=== PATIENT | male | born 1960 | race Caucasian/White ===

== ENCOUNTER 2017-08-27 07:12 | Day surgery (SDC) | payer BC ==
[~2017-08-27 07:12] MED LIST: Lactated Ringers 1,000 ML IV SCH; Sodium Chloride 0.9% 5 ML Syringe FLUSH PRN
[2017-08-27] MEDS ORDERED: Propofol 200 MG/20 ML SDV ONE ×2 (07:21→09:05)
[2017-08-27] MEDS ORDERED: ceFAZolin 1 GM Vial ONE ×3 (07:21→09:03)
[2017-08-27] MEDS ORDERED: fentaNYL 250 MCG/5 ML SDV ONE (07:21)
[2017-08-27] MEDS ORDERED: Bupivacaine 0.5%/EPINEPHrine 1:200,000 30 ML SDV ONE (08:00)
[2017-08-27] MEDS ORDERED: fentaNYL 250 MCG/5 ML SDV IV ONE (08:30)
[2017-08-27] MEDS ORDERED: ceFAZolin 1 GM Vial IV ONE (08:30)
[2017-08-27] MEDS ORDERED: Glycopyrrolate 0.2 MG/ML 5 ML MDV IV ONE (08:30)
[2017-08-27] MEDS ORDERED: Propofol 200 MG/20 ML SDV IV ONE (08:30)
[2017-08-27] MEDS ORDERED: Bupivacaine 0.5%/EPINEPHrine 1:200,000 30 ML SDV INFILT ONE ×2 (09:04)
[2017-08-27] MEDS ORDERED: Sodium Chloride 0.9% 20 ML SDV ONE (09:04)
--- NOTE | 2017-08-27 09:49 | PCM.OPNOTE ---
- General Post-Op/Procedure Note Date of Surgery/Procedure: 08/27/17 Operative Procedure(s): Umbilical Herniorraphy with overlay mesh. Findings: Moderately enlarged umbilical hernia with contents being loop of small bowel and preperitoneal fat. Repair done with overlay Marlex mesh.. Pre Op Diagnosis: Umbilical hernia, reducible. Post-Op Diagnosis: As above. Anesthesia Technique: General ET Tube Primary Surgeon: Maira Elkins Complications: None Condition: Good Free Text/Narrative:: Preoperative diagnosis: Moderately enlarged umbilical hernia, reducible. Postoperative diagnosis: As above. Contents of the hernia are small loop of small bowel and preperitoneal fat. Procedure performed: Umbilical herniorrhaphy and Marlex mesh overlay repair. Informed consent was obtained from the patient regarding this procedure. All possible complications were thoroughly discussed. These include infection, pain , bleeding, recurrence, bowel obstruction, and other unknown complications. Despite the complications the patient decided to proceed. He was taken to the operating room and kept in the supine position. A satisfactory general anesthetic was administered by the bread slicer machine. His abdomen is thoroughly prepped and draped in the usual fashion. A curvilinear incision was made in the supraumbilical fold and this was dissected to the fascial level. The hernia was readily identified. The fascia was opened. This was mostly preperitoneal fat but there was a small loop of small bowel at this time present. This was carefully dissected away and replaced into the abdominal cavity. The preperitoneal fat was excised and careful hemostasis was obtained. We then repaired the umbilical defect from within the abdomen using 1 nylon. The fascia was then repaired using 1 nylon. An overlay of Marlex mesh was placed and attached to the fascia for additional support. The wound was profusely irrigated. Careful hemostasis was maintained. The subcutaneous tissues were approximated with 4-0 Polysorb and the skin was closed using stainless steel clips. Approximately 10 mL of Marcaine 0.5% was instilled in the wound. Dressings were placed. An abdominal binder was also placed. The patient was transferred to the recovery room in an excellent condition. Blood loss was negligible and there were no intraoperative complications.
== END 2017-08-27 11:40 | disposition home or self-care (01) ==
LOC: KA.SDS 07:12
PROVIDERS: ATTEND Family Medicine
DX: K42.9 Umbilical hernia without obstruction or gangrene (principal); E78.5 Hyperlipidemia, unspecified; Z79.82 Long term (current) use of aspirin; Z79.899 Other long term (current) drug therapy; F17.200 Nicotine dependence, unspecified, uncomplicated
CPT/HCPCS: 49585; C1781; J0690; J2704; J3010; J7120; J3490

== ENCOUNTER 2019-12-31 22:57 | Emergency (ER) | payer BC ==
[2019-12-31] MEDS ORDERED: Metoprolol Tartrate 5 MG/5 ML SDV IVPUSH ONE (23:24)
[2019-12-31] MEDS ORDERED: Sodium Chloride 0.9% 1,000 ML ONE (23:36)
--- NOTE | 2019-12-31 23:36 | EDM.PDOC ---
ED HPI GENERAL MEDICAL PROBLEM - General Chief Complaint: Cardiovascular Problem Stated Complaint: fast heart rate Time Seen by Provider: 12/31/19 23:01 Source of Information: Reports: Patient History Limitations: Reports: No Limitations - History of Present Illness INITIAL COMMENTS - FREE TEXT/NARRATIVE: Patient presents with rapid A Fib that started about 2030 this evening. With it he felt some pain across the top of left shoulder and mild discomfort in upper right chest near sternum. He says this wasn't pain and can't accurately describe it. He has had this set of symptoms more than a dozen times in last 4 years. He always goes to ER and gets back to [facility] usually with medicine and once with cardioversion in [place]. It usually involves staying several hours in hospital. He now takes Xarelto, Flecainide and Metoprolol regularly. - Related Data Allergies Allergy/AdvReac Type Severity Reaction Status Date / Time No Known Drug Allergies Allergy NKDA Verified 12/31/19 23:11 Home Meds: Home Meds Multivitamin with Minerals [Multiple Vitamin] 1 tab PO DAILY 08/24/17 [History] Losartan Potassium 1 tab PO DAILY 06/17/19 [History] Flecainide [Tambocor] 100 mg PO BID 12/31/19 [History] Metoprolol Tartrate 50 mg PO BID 12/31/19 [History] Pravastatin Sodium 20 mg PO DAILY 12/31/19 [History] Rivaroxaban [Xarelto] 20 mg PO DAILY 12/31/19 [History] Past Medical History HEENT History: Reports: Impaired Vision Other HEENT History: readers Cardiovascular History: Reports: Afib, High Cholesterol, Hypertension Gastrointestinal History: Reports: Colon Polyp Musculoskeletal History: Reports: None - Infectious Disease History Infectious Disease History: Reports: Chicken Pox - Past Surgical History HEENT Surgical History: Reports: LASIK, Tonsillectomy Cardiovascular Surgical History: Reports: None GI Surgical History: Reports: Colonoscopy Other Musculoskeletal Surgeries/Procedures:: lower leg history of brake with pins and plate Social & Family History - Caffeine Use Caffeine Use: Reports: Coffee, Energy Drinks ED ROS GENERAL - Review of Systems Review Of Systems: See Below Constitutional: Denies: Fever, Chills, Malaise, Weakness HEENT: Denies: Ear Pain, Throat Pain, Vision Change Respiratory: Reports: Shortness of Breath (mild with the tachycardia). Denies: Cough Cardiovascular: Reports: Chest Pain (see HPI). Denies: Lightheadedness, Syncope GI/Abdominal: Denies: Abdominal Pain, Vomiting Musculoskeletal: Reports: Shoulder Pain (see HPI). Denies: Neck Pain, Arm Pain , Back Pain, Hand Pain Skin: Denies: Cyanosis, Jaundice, Mottled, Pallor, Diaphoresis Neurological: Denies: Confusion, Dizziness, Headache, Seizure, Syncope, Trouble Speaking, Difficulty Walking Psychiatric: Denies: Agitation, Anxiety, Confusion Hematologic/Lymphatic: Reports: Easy Bleeding (on Xarelto) ED EXAM, GENERAL - Physical Exam Exam: See Below Exam Limited By: No Limitations General Appearance: Alert, WD/WN, No Apparent Distress Eye Exam: Bilateral Eye: EOMI, Normal Inspection, PERRL Ears: Normal External Exam, Hearing Grossly Normal Nose: Normal Inspection, No Blood Throat/Mouth: Normal Inspection, Normal Lips, Normal Voice, No Airway Compromise Head: Atraumatic, Normocephalic Neck: Normal Inspection, Supple, Non-Tender, Full Range of Motion Respiratory/Chest: No Respiratory Distress, Lungs Clear, Normal Breath Sounds, No Accessory Muscle Use Cardiovascular: Normal Peripheral Pulses, No Murmur, Tachycardia, Irregularly Irregular Peripheral Pulses: 2+: Carotid (L), Carotid (R), Radial (L), Radial (R), Posterior Tibial (L), Posterior Tibial (R) GI/Abdominal: Soft, Non-Tender, No Organomegaly, No Distention Back Exam: Normal Inspection, Full Range of Motion Extremities: Normal Inspection, Normal Range of Motion, Non-Tender, No Pedal Edema Neurological: Alert, Oriented, Normal Cognition, No Motor/Sensory Deficits Psychiatric: Normal Affect, Normal Mood Skin Exam: Warm, Dry, Intact, Normal Color, No Rash Course - Vital Signs Last Recorded V/S: Last Vital Signs Temp 96.8 F L 12/31/19 22:57 Pulse 130 H 01/01/20 00:25 Resp 16 01/01/20 00:25 BP 124/68 01/01/20 00:25 Pulse Ox 97 01/01/20 00:25 - Orders/Labs/Meds Orders: Active Orders 24 hr Category Date Time Status EKG Documentation Completion [RC] ASDIRECTED Care 12/31/19 23:13 Active EKG 12 Lead [EK] Stat Ther 12/31/19 23:00 Ordered Labs: Laboratory Tests 12/31/19 12/31/19 Range/Units 23:30 23:30 WBC 8.28 (5.00-10.00) 10^3/uL RBC 4.60 (4.50-6.00) 10^6/uL Hgb 14.4 (13.0-17.0) g/dL Hct 42.0 (40.0-52.0) % MCV 91.3 (82.0-92.0) fL MCH 31.3 H (27.0-31.0) pg MCHC 34.3 (32.0-36.0) g/dL RDW 13.2 (11.5-14.5) % Plt Count 185 (150-400) 10^3/uL MPV 10.9 H (7.4-10.4) fL Immature Gran % (Auto) 0.4 (0.0-5.0) % Neut % (Auto) 58.4 (50.0-70.0) % Lymph % (Auto) 30.2 (20.0-40.0) % Archer % (Auto) 9.3 H (2.0-8.0) % Eos % (Auto) 1.1 (1.0-3.0) % Baso % (Auto) 0.6 (0.0-1.0) % Immature Gran # (Auto) 0.03 (0.00-0.50) 10^3/uL Neut # (Auto) 4.84 (2.50-7.00) 10^3/uL Lymph # (Auto) 2.50 (1.00-4.00) 10^3/uL Archer # (Auto) 0.77 (0.10-0.80) 10^3/uL Eos # (Auto) 0.09 L (0.10-0.30) 10^3/uL Baso # (Auto) 0.05 (0.00-0.10) 10^3/uL Sodium 146 H (136-145) mmol/L Potassium 3.7 (3.3-5.3) mmol/L Chloride 108 (98-115) mmol/L Carbon Dioxide 23.8 (21.0-32.0) mmol/L Anion Gap 17.9 H (5-15) mmol/L BUN 14 (6-25) mg/dL Creatinine 0.90 (0.51-1.17) mg/dL Est Cr Clr Drug Dosing 86.19 mL/min Estimated GFR (MDRD) > 60 mL/min Glucose 141 H (75 - 99) mg/dL Calcium 9.0 (8.7-10.3) mg/dL Total Bilirubin 0.2 (0.2-1.0) mg/dL AST 14 L (15-37) U/L ALT 32 (12-78) U/L Alkaline Phosphatase 81 (46-116) IU/L Troponin I 0.08 H* (0.00-0.070) ng/mL Total Protein 6.5 (6.4-8.2) g/dL Albumin 3.45 (3.00-4.80) g/dL Meds: Medications Discontinued Medications Generic Name Dose Route Start Last Admin Trade Name Freq PRN Reason Stop Dose Admin Aspirin 324 mg 01/01/20 00:36 Aspirin PO 01/01/20 00:37 ONETIME ONE Sodium Chloride 1,000 mls @ 999 mls/hr 12/31/19 23:36 12/31/19 23:53 Normal Saline IV 01/01/20 00:36 999 mls/hr .BOLUS ONE Administration Sodium Chloride Confirm 12/31/19 23:36 12/31/19 23:52 Normal Saline Administered 12/31/19 23:37 Not Given Dose 1,000 mls @ as directed .ROUTE .STK-MED ONE Metoprolol Tartrate 10 mg 12/31/19 23:24 12/31/19 23:57 Lopressor IVPUSH 12/31/19 23:25 10 mg ONETIME ONE Administration Metoprolol Tartrate 10 mg 01/01/20 00:34 Lopressor IVPUSH 01/01/20 00:35 ONETIME ONE Metoprolol Tartrate Confirm 01/01/20 00:35 Lopressor Administered 01/01/20 00:36 Dose 5 mg .ROUTE .STK-MED ONE - Re-Assessments/Exams Free Text/Narrative Re-Assessment/Exam: 01/01/20 00:36 EKG shows T-wave inversion in inferior leads but no ST elevations. Troponin is 0.08. Patient denies any pain in chest or shoulder now. I discussed findings with him and recommend transfer to [place]. He somewhat reluctantly agrees. I discussed case with hospitalist, Dr. Mckenzie, who accepted for transfer and recommends cardizem drip if metoprolol doesn't control rate. 01/01/20 01:10 Second dose of metoprolol didn't reduce rate so will start cardizem drip. EMS will be here shortly to get patient. Patient is stable and comfortable. Departure - Departure Time of Disposition: 00:44 Disposition: DC/Tfer to Acute Hospital 02 Reason for Transfer *Q: Other Condition: Good Clinical Impression: Atrial fibrillation with RVR, Elevated troponin Forms: ED Department Discharge Sepsis Event Note - Evaluation Sepsis Screening Result: No Definite Risk - Focused Exam Vital Signs: Vital Signs Temp Pulse Pulse Resp BP BP Pulse Ox 01/01/20 00:25 130 H 16 124/68 97 01/01/20 00:11 128 H 18 94/56 L 97 01/01/20 00:07 115 H 16 105/73 97 01/01/20 00:05 115 H 16 112/69 98 12/31/19 23:57 122 H 126/61 12/31/19 23:55 122 H 18 126/61 98 12/31/19 23:50 132 H 18 91/47 L 97 12/31/19 23:20 137 H 20 101/69 94 L 12/31/19 22:57 96.8 F L 139 H 18 135/76 95 Date Exam was Performed: 01/01/20 Time Exam was Performed: 00:45 - My Orders Last 24 Hours: My Active Orders 12/31/19 23:00 EKG 12 Lead [EK] Stat 12/31/19 23:13 EKG Documentation Completion [RC] ASDIRECTED - Assessment/Plan Last 24 Hours: My Active Orders 12/31/19 23:00 EKG 12 Lead [EK] Stat 12/31/19 23:13 EKG Documentation Completion [RC] ASDIRECTED
[2019-12-31] MEDS: Sodium Chloride 0.9% 1,000 ML IV ONE (23:53)
[2020-01-01 00:09] LABS: ANION GAP 17.9 mmol/L (5-15); CHLORIDE,CL 108 mmol/L (98-115); SODIUM,NA 146 mmol/L (136-145)
[2020-01-01] MEDS ORDERED: Metoprolol Tartrate 5 MG/5 ML SDV IVPUSH ONE (00:34)
[2020-01-01] MEDS ORDERED: Metoprolol Tartrate 5 MG/5 ML SDV ONE (00:35)
[2020-01-01] MEDS ORDERED: Aspirin 81 MG Tab.Chew PO ONE (00:36)
[2020-01-01] MEDS ORDERED: Diltiazem 125 MG in Sodium Chloride 0.9% 100 ML IV SCH (01:15)
[2020-01-01] MEDS ORDERED: Sodium Chloride 0.9% 1,000 ML ONE (01:23)
[2020-01-01] MEDS: Sodium Chloride 0.9% 1,000 ML IV ONE (01:30)
[2020-01-01 02:02] VITALS: BP 134/68; PULSE 128
== END 2020-01-01 01:35 ==
LOC: KA.ED 22:57
DX: I48.91 Unspecified atrial fibrillation (principal); R79.89 Other specified abnormal findings of blood chemistry; E78.00 Pure hypercholesterolemia, unspecified; I10 Essential (primary) hypertension; Z79.899 Other long term (current) drug therapy
CPT/HCPCS: 36415; 80053; 84484; 85025; 93005; 96361; 96374; 96375; 96376; 99285-25; A9270-GY; J3490; J7030; J7050

== ENCOUNTER 2020-04-05 07:51 | Day surgery (SDC) | payer BC ==
[~2020-04-05 07:51] MED LIST changes: -Lactated Ringers 1,000 ML IV SCH; +Midazolam 1 MG/ML 2 ML SDV ONE; +Propofol 200 MG/20 ML SDV ONE; -Sodium Chloride 0.9% 5 ML Syringe FLUSH PRN
[2020-04-05] MEDS ORDERED: Propofol 200 MG/20 ML SDV IV ONE (07:52)
[2020-04-05] MEDS ORDERED: Midazolam 1 MG/ML 2 ML SDV IV ONE (07:52)
[2020-04-05] MEDS ORDERED: Sodium Chloride 0.9% 10 ML Syringe FLUSH PRN (08:00)
[2020-04-05] MEDS ORDERED: Lactated Ringers 1,000 ML IV SCH (08:00)
[2020-04-05] MEDS ORDERED: Propofol 200 MG/20 ML SDV ONE (08:31)
--- NOTE | 2020-04-05 10:03 | PCM.PRNOTE ---
- Free Text/Narrative Note: PROCEDURE PERFORMED: Colonoscopy with polypectomy PRE-PROCEDURE DIAGNOSIS/INDICATION FOR PROCEDURE: Screening for colorectal cancer. Last colonoscopy 06/21/09 with reported polyps for which repeat colonoscopy was recommended in 10 years. CONSENT: Informed consent was obtained prior to the procedure after discussion of the risks (including pain, bleeding, infection, perforation, missed polyps, inability to completely remove polyps or complete procedure necessitating repeat colonoscopy, adverse reaction to anesthesia, cardiovascular event), benefits and alternatives and expected outcomes. The patient expressed understanding and wished to proceed. Verbal consent given and consent form signed. PROCEDURAL PAUSE: Completed SEDATION: Per anesthesia DESCRIPTION OF PROCEDURE: Patient was placed in the left lateral decubitus position. After adequate sedation and anesthetic was administered, a rectal exam was performed revealing no abnormalities. A lubricated Olympus Video Colonoscope was inserted into the rectum and air insufflation was performed. The colonoscope was advanced through the rectum, sigmoid, descending, transverse, and ascending colon without difficulties. The cecum was reached and the ileocecal valve as well as the appendiceal orifice were identified and pictorially documented. After adequate visualization of the cecum, the scope was withdrawn, giving 360-degree views of the colonic mucosa and retroflexion was performed in the rectum with the following findings noted: Ileocecal valve: Normal Cecum: Normal Ascending colon: Normal Hepatic flexure: Normal Transverse colon: Normal Splenic flexure: Normal Descending colon: Normal Sigmoid colon: One 0.5cm polyp at 45cm and two 0.5cm polyps at 20cm, all removed with cold forceps with complete removal and subsequent hemostasis noted. Rectum: Normal The scope was straightened, air suction performed, and the scope withdrawn without complication. Preparation adequacy good, [place] Bowel Prep = 05/19. IMPRESSION: Colonoscopy performed revealing 3 small sigmoid polyps, pathology now pending. PLAN: Will contact the patient when pathology results received with recommendation for repeat colonoscopy. Encourage adequate fiber diet and bowel regimen to ensure 1- 2 soft bowel movements per day.
== END 2020-04-05 10:40 | disposition home or self-care (01) ==
LOC: KA.SDS 07:51
PROVIDERS: ATTEND Family Medicine
DX: Z12.11 Encounter for screening for malignant neoplasm of colon (principal); D12.5 Benign neoplasm of sigmoid colon; I10 Essential (primary) hypertension; E78.5 Hyperlipidemia, unspecified; I48.0 Paroxysmal atrial fibrillation; M25.551 Pain in right hip; M65.331 Trigger finger, right middle finger; M65.341 Trigger finger, right ring finger; Z79.899 Other long term (current) drug therapy; Z87.891 Personal history of nicotine dependence; Z86.010 Personal history of colon polyps; Z98.890 Other specified postprocedural states
CPT/HCPCS: 00812; 45380; J2250; J2704; J7120

== ENCOUNTER 2024-12-07 00:47 | Emergency (ER) | payer BC, OTHER ==
[2024-12-07 01:20] LABS: BASOPHILS ABSOLUTE AUTO 0.02 10^3/uL (0.00-0.10); BASOPHILS PERCENT AUTO 0.3 % (0.0-1.0); EOSINOPHILS PERCENT AUTO 1.6 % (1.0-3.0); HEMATOCRIT 41.3 % (40.0-52.0); HEMOGLOBIN 14.3 g/dL (13.0-17.0); IMMATURE GRAN ABSOLUTE AUTO 0.01 10^3/uL (0.00-0.04); IMMATURE GRAN PERCENT AUTO 0.2 % (0.0-0.4); LYMPHOCYTES ABSOLUTE AUTO 2.16 10^3/uL (1.00-4.00); LYMPHOCYTES PERCENT AUTO 35.1 % (20.0-40.0); MEAN CORPUSCULAR HEMOGLOBIN 31.5 pg (27.0-31.0); MEAN CORPUSCULAR HGB CONC 34.6 g/dL (32.0-36.0); MEAN PLATELET VOLUME 10.6 fL (7.4-10.4); MONOCYTES ABSOLUTE AUTO 0.51 10^3/uL (0.10-0.80); MONOCYTES PERCENT AUTO 8.3 % (2.0-8.0); NEUTROPHILS ABSOLUTE AUTO 3.35 10^3/uL (2.50-7.00); NEUTROPHILS PERCENT AUTO 54.5 % (50.0-70.0); PLATELET COUNT,PLT 190 10^3/uL (150-400); RED BLOOD CELL COUNT 4.54 10^6/uL (4.50-6.00); WHITE BLOOD CELL COUNT,WBC 6.15 10^3/uL (5.00-10.00)
[2024-12-07 01:25] LABS: APPEARANCE,URINE SLIGHTLY CLOUDY (CLEAR); COLOR,URINE RED (YELLOW); PROTEIN,URINE 30 mg/dL (NEGATIVE)
[2024-12-07 01:26] LABS: BILIRUBIN,URINE NEGATIVE (NEGATIVE); GLUCOSE,URINE NEGATIVE (NEGATIVE); KETONES,URINE NEGATIVE (NEGATIVE); LEUKOCYTE ESTERASE,URINE NEGATIVE (NEGATIVE); NITRITE,URINE NEGATIVE (NEGATIVE); OCCULT BLOOD,URINE LARGE (NEGATIVE); UROBILINOGEN,URINE 0.2 E.U./dL (0.2-1.0)
[2024-12-07 01:30] LABS: RBC,URINE >100 /HPF (0-5)
[2024-12-07 01:31] LABS: BACTERIA,URINE NOT SEEN /HPF (NONE TO FEW); EPITHELIAL CELLS,URINE RARE /LPF; HYALINE CASTS,URINE NOT SEEN; WBC,URINE NOT SEEN /HPF (0-5)
[2024-12-07 01:34] LABS: CALCIUM 9.5 mg/dL (8.7-10.3); CARBON DIOXIDE,CO2 27.7 mmol/L (21.0-32.0); CREATININE 0.76 mg/dL (0.51-1.17); EST CRCL DRUG DOSING (CG) 95.61 mL/min; POTASSIUM,K 3.7 mmol/L (3.5-5.1)
== END 2024-12-07 01:57 | disposition home or self-care (01) ==
LOC: KA.ED 00:47
DX: R31.0 Gross hematuria (principal); I48.91 Unspecified atrial fibrillation; E78.00 Pure hypercholesterolemia, unspecified; I10 Essential (primary) hypertension; F17.210 Nicotine dependence, cigarettes, uncomplicated; Z79.899 Other long term (current) drug therapy; Z79.01 Long term (current) use of anticoagulants
CPT/HCPCS: 36415; 80048; 81001; 85025; 99283